=== PATIENT | male | born 1970 | race Hispanic/Latino ===

== ENCOUNTER → 2017-07-10 | Outpatient (CLI) | payer BC ==
--- NOTE | 2017-07-10 18:42 | Diagnostic Imaging Report ---
PROCEDURE:TESTICULAR ULTRASOUND COMPARISON:None. INDICATIONS:left testicular pain FINDINGS: Multiple sagittal and axial images were obtained of the scrotum. Doppler examination was performed bilaterally. The right testicle measures 4.0 x 2.0 to provide cm. It is of normal echogenicity without focal masses. The vascular supply is within normal limits, without evidence of testicular torsion. The right epididymis measures approximately 1.0 x 0.8 x 0.9 cm. There is a 5 mm right epididymal head cyst. No hydrocele or varicocele is identified. The left testicle measures 4.5 x 2.0 x 3.0 cm. It is within normal echogenicity without focal masses. The vascular supply is within normal limits, without evidence for torsion. The left epididymis measures approximately 1.0 x 0.5 x 0.6 cm and is within normal limits. No hydrocele or varicocele is identified. There is no sonographic evidence for right or left inguinal hernia. Overlying scrotal tissue is within normal limits. CONCLUSION: No evidence of testicular torsion, mass, or inflammatory disease. No specific findings to explain left testicular pain Dictated by: Jaden Nuñez M.D. on 07/10/2017 at 18:43 Electronically approved by: Jaden Nuñez M.D. on 07/10/2017 at 18:43
--- NOTE | 2017-07-10 18:43 | Diagnostic Imaging Report ---
PROCEDURE:TESTICULAR DOPPLER ULTRASOUND Please see separate dictation for testicular ultrasound (accession #[id number]) for full results. Dictated by: Jaden Nuñez M.D. on 07/10/2017 at 18:45 Electronically approved by: Jaden Nuñez M.D. on 07/10/2017 at 18:45
== END ==
LOC: US 16:52
PROVIDERS: ATTEND Family Medicine
DX: N50.819 Testicular pain, unspecified (principal)
CPT/HCPCS: 76870; 93976

== ENCOUNTER → 2020-06-01 | Day surgery (SDC) | payer BC ==
[2020-05-31 12:22] LABS: BASOPHILS % 0.3 % (0.0-1.0); EOSINOPHILS # (AUTO) 0.1 (0.0-0.4); EOSINOPHILS % 0.6 % (0.0-6.0); HEMATOCRIT 46.1 % (38.2-49.6); HEMOGLOBIN 15.8 g/dL (14.0-18.0); LYMPHOCYTES # (AUTO) 1.5 (1.0-3.2); MEAN CORPUSCULAR HEMOGLOBIN 30.4 pg (28-32); MEAN CORPUSCULAR HGB CONC 34.3 g/dL (31-35); MEAN CORPUSCULAR VOLUME 88.8 fL (81-99); MONOCYTES # (AUTO) 0.5 (0.2-0.8); MONOCYTES % 5.3 % (4.4-11.3); NEUTROPHILS # (AUTO) 7.2 (2.1-6.9); NEUTROPHILS % 77.4 % (38.7-80.0); PLATELET COUNT 248 x10e3/uL (140-360); RED BLOOD COUNT 5.19 x10e6/uL (4.3-5.7); RED CELL DISTRIBUTION WIDTH 11.9 % (11.7-14.4)
[2020-05-31 12:47] LABS: ANION GAP 13.3 mmol/L (8-16); BLOOD UREA NITROGEN 20 mg/dL (7-26); BUN/CREATININE RATIO 19 (6-25); CALCIUM 9.1 mg/dL (8.4-10.2); CARBON DIOXIDE 24 mmol/L (22-29); CHLORIDE 104 mmol/L (98-107); CREATININE, SERUM 1.03 mg/dL (0.72-1.25); EST GLOMERULAR FILTRATION RATE > 60 ML/MIN (60-); GLUCOSE 113 mg/dL (74-118); POTASSIUM 4.3 mmol/L (3.5-5.1); SODIUM 137 mmol/L (136-145)
[~2020-06-01] MED LIST: CLINDAMYCIN HC150 MG PO; DEXAMETHASONE SOD PHOS INJ 4 MG/ML VIAL ONE; FENTANYL CITRATE/PF 100MCG/2 ML INJ ONE; HYDROGEN PEROXIDE 120 ML BTL ONE; KETOROLAC TROMETHAMINE 30 MG/ML VIAL ONE; LIDOCAINE HCL 2% LOCAL INJ 5 ML SDV VIAL INJ ONE; MIDAZOLAM HCL 2 MG/2 ML VIAL ONE; ONDANSETRON HCL INJ 2MG/ML 2ML 2 MG/ML VIAL ONE; PROPOFOL IV EMULSION 10 MG/ML 20 ML VIAL ONE; SEVOFLURANE INHAL SOLN 250 ML PEN BTL ONE; [UNRECOGNIZED DRUG - OTHER] PO
[2020-06-01 10:30] VITALS: BP 143/89
== END | disposition home or self-care (01) ==
LOC: OR 07:24
PROVIDERS: ATTEND Surgery
DX: L72.0 Epidermal cyst (principal); L02.212 Cutaneous abscess of back [any part, except buttock and flank]; Z01.810 Encounter for preprocedural cardiovascular examination; Z01.812 Encounter for preprocedural laboratory examination; Z20.822 Contact with and (suspected) exposure to COVID-19
CPT/HCPCS: 10060; 36415; 80048; 85025; 87071; 87075; 87205; 93005; J1100; J1885; J2001; J2250; J2405; J2704; J3010; U0002

== ENCOUNTER → 2020-09-22 | Day surgery (SDC) | payer BC ==
[~2020-09-22] MED LIST changes: +BUPIVACAINE HCL 0.5% INJ 30 ML VIAL INJ ONE; -DEXAMETHASONE SOD PHOS INJ 4 MG/ML VIAL ONE; -HYDROGEN PEROXIDE 120 ML BTL ONE; -KETOROLAC TROMETHAMINE 30 MG/ML VIAL ONE; +LIDOCAINE 1% W/EPINEPHRINE 20 ML VIAL ONE; +POVIDONE IODINE 0.05% 0.05 % ML PO ONE
[2020-09-22 11:00] LABS: BASOPHILS % 0.5 % (0.0-1.0); EOSINOPHILS # (AUTO) 0.1 (0.0-0.4); EOSINOPHILS % 1.3 % (0.0-6.0); HEMATOCRIT 48.5 % (38.2-49.6); HEMOGLOBIN 16.3 g/dL (14.0-18.0); LYMPHOCYTES # (AUTO) 1.5 (1.0-3.2); LYMPHOCYTES % 25.1 % (18.0-39.1); MEAN CORPUSCULAR HEMOGLOBIN 30.1 pg (28-32); MEAN CORPUSCULAR HGB CONC 33.6 g/dL (31-35); MEAN CORPUSCULAR VOLUME 89.5 fL (81-99); MONOCYTES # (AUTO) 0.4 (0.2-0.8); MONOCYTES % 5.7 % (4.4-11.3); NEUTROPHILS # (AUTO) 4.1 (2.1-6.9); NEUTROPHILS % 67.1 % (38.7-80.0); PLATELET COUNT 204 x10e3/uL (140-360); RED BLOOD COUNT 5.42 x10e6/uL (4.3-5.7); RED CELL DISTRIBUTION WIDTH 12.5 % (11.7-14.4)
[2020-09-22 11:19] LABS: CALCIUM 9.1 mg/dL (8.4-10.2); CREATININE, SERUM 1.09 mg/dL (0.72-1.25)
[2020-09-22 13:40] VITALS: BP 142/85
== END | disposition home or self-care (01) ==
LOC: OR 09:22
PROVIDERS: ATTEND Surgery
DX: L72.0 Epidermal cyst (principal); Z01.810 Encounter for preprocedural cardiovascular examination; Z01.812 Encounter for preprocedural laboratory examination
CPT/HCPCS: 11406; 12034; 36415; 80048; 85025; 88304; 93005; J2001; J2250; J2405; J2704; J3010